=== PATIENT | female | born 1985 | race Caucasian/White ===

== ENCOUNTER 2017-01-10 22:25 | Emergency (ER) | payer SELFPAY ==
[~2017-01-10] VITALS: Ht 172.7 cm; Wt 115.8 kg
[~2017-01-10 22:25] MED LIST: ACET325T11 PO; CHILDREN'S VITAMIN PO; TYLE3 PO
[2017-01-10 22:29] VITALS: BP 202/137; PULSE 93; RESP 18; TEMP 98.2; O2SAT 99
[2017-01-10] MEDS ORDERED: LIDOCAINE 1%/EPINEPHrine 1:100,000 SOLN 20 ML VIAL INFIL ONE (22:45)
[2017-01-10] MEDS ORDERED: BACT800T5 PO (22:52)
[2017-01-10] MEDS ORDERED: IBUP-232 PO (22:52)
--- NOTE | 2017-01-10 22:52 | PD ---
HPI Chief Complaint: Skin Problem Time Seen by Provider: 22:37 Travel History International Travel<30 days: No Contact w/Intl Traveler<30days: No Traveled to known affect area: No History of Present Illness HPI 31-year-old female presents the emergency department with recurrent paronychia to the right distal middle finger. He has been present for approximately one half weeks. Patient states she started treated herself several times without improvement. She denies fever, chills, or other symptoms. It is tender with a pain scale 4/10. He is allergic to iodine but no other allergies. Patient is noted to have hypertension but is scheduled to follow up with her primary care physician this week to address that issue. PFSH Past Medical History Cardiovascular Problems: Yes (HTN) Diminished Hearing: No Hypertension: Yes Tetanus Vaccination: Unknown Influenza Vaccination: No ?: Not : 3 Para: 3 Social History Alcohol Use: No Tobacco Use: Yes (smokes a pack and a half of cigarettes per day) Substance Use: No Allergies-Medications (Allergen,Severity, Reaction): Coded Allergies: Iodine (Verified Allergy, Mild, RASH, 04/14/16) Reported Meds & Prescriptions Reported Meds & Active Scripts Active Ibuprofen 600 Mg Tab 600 Mg PO Q6H PRN Bactrim DS (Sulfamethoxazole-Trimethoprim) 800-160 Mg Tab 1 Tab PO BID Review of Systems Except as stated in HPI: all other systems reviewed are Neg General / Constitutional: No: Fever Eyes: No: Visual changes HENT: No: Headaches Cardiovascular: No: Chest Pain or Discomfort Respiratory: No: Shortness of Breath Gastrointestinal: No: Abdominal Pain Genitourinary: No: Dysuria Musculoskeletal: No: Pain Skin: Positive Lesions, No Rash Neurologic: No: Weakness Psychiatric: No: Depression Endocrine: No: Polydipsia Hematologic/Lymphatic: No: Easy Bruising Physical Exam Narrative GENERAL: Patient appears no distress. SKIN: Warm and dry. Normal color. Normal turgor. Patient has an obvious paronychia on the distal right middle finger along the lateral nail edge. HEAD: Atraumatic. Normocephalic. EYES: Pupils equal and round. No scleral icterus. No injection or drainage. ENT: No nasal bleeding or discharge. Mucous membranes pink and moist. NECK: Trachea midline. No JVD. CARDIOVASCULAR: Regular rate and rhythm. RESPIRATORY: No accessory muscle use. Clear to auscultation. Breath sounds equal bilaterally. GASTROINTESTINAL: Abdomen soft, non-tender, nondistended. Hepatic and splenic margins not palpable. MUSCULOSKELETAL: Extremities without clubbing, cyanosis, or edema. No obvious deformities. NEUROLOGICAL: Awake and alert. No obvious cranial nerve deficits. Motor grossly within normal limits. Five out of 5 muscle strength in the arms and legs. Normal speech. PSYCHIATRIC: Appropriate mood and affect; insight and judgment normal. Data Data Last Documented VS Vital Signs Date Time Temp Pulse Resp B/P Pulse Ox O2 Delivery O2 Flow Rate FiO2 01/10/17 22:29 98.2 93 18 202/137 99 Orders Lidocai-Epi 1%-1:100,000 Inj (Xylocaine- (01/10/17 22:45) MDM Medical Decision Making Medical Screen Exam Complete: Yes Emergency Medical Condition: Yes Differential Diagnosis Cellulitis. Abscess. Paronychia. Narrative Course Patient is medically stable at time of exam. I and D is performed of the paronychia. See procedure note. Dressing is to remain in place for 48 hours. Patient is placed on Bactrim DS 3 times a day 7 days. Patient is to take ibuprofen 600 mg 4 times a day when necessary. Recommend patient follow with her primary care physician as scheduled for her hypertension and follow-up her paronychia. Diagnosis Primary Impression: Paronychia of right middle finger Additional Impression: Hypertension Qualified Code: I10 - Essential hypertension Referrals: [facility] Patient Instructions: General Instructions, Paronychia (ED) Additional Instructions: I and D is performed of the paronychia. Dressing is to remain in place for 48 hours. Patient is placed on Bactrim DS 3 times a day 7 days. Patient is to take ibuprofen 600 mg 4 times a day when necessary. Recommend patient follow with her primary care physician as scheduled for her hypertension and follow-up her paronychia. Med/Other Pt SpecificInfo: Prescription(s) given Scripts Ibuprofen 600 Mg [id number] Mg PO Q6H PRN (Pain/Inflammation) #40 TAB Prov:Genesis Burden MD 01/10/17 Sulfamethoxazole-Trimethoprim (Bactrim DS)800-160 Mg Tab1 Tab PO BID #14 TAB Prov:Genesis Burden MD 01/10/17 Disposition: 01 DISCHARGE HOME Condition: Stable Clarence,Darius F. PA January 10, 2017 22:52
== END 2017-01-10 22:58 | disposition home or self-care (01) ==
LOC: PHEFT 22:25
DX: L03.011 Cellulitis of right finger (principal); I10 Essential (primary) hypertension; F17.210 Nicotine dependence, cigarettes, uncomplicated
CPT/HCPCS: 10061

== ENCOUNTER 2017-02-05 12:24 | Emergency (ER) | payer SELFPAY ==
[~2017-02-05] VITALS: Ht 172.7 cm; Wt 115.0 kg
[~2017-02-05 12:24] MED LIST changes: -ACET325T11 PO; +BACT800T5 PO; -CHILDREN'S VITAMIN PO; +IBUP-232 PO; -TYLE3 PO
[2017-02-05 13:01] VITALS: BP 156/107; PULSE 81; RESP 16; TEMP 99.5; O2SAT 99
[2017-02-05] MEDS ORDERED: DEPO104I SQ (13:15)
[2017-02-05 13:30] LABS: AUTOMATED NEUTROPHIL # 5.2 TH/MM3 (1.8-7.7); BASOPHIL # 0.1 TH/MM3 (0-0.2); BASOPHIL % 0.9 % (0.0-2.0); EOSINOPHIL # 0.1 TH/MM3 (0-0.4); EOSINOPHIL % 0.8 % (0.0-4.0); HEMATOCRIT 39.2 % (35.0-46.0); LYMPH % 14.3 % (9.0-44.0); LYMPHOCYTE # 0.9 TH/MM3 (1.0-4.8); MEAN CELL VOLUME 83.7 FL (80.0-100.0); MEAN CORPUSCULAR HEMOGLOBIN 28.8 PG (27.0-34.0); MEAN CORPUSCULAR HGB CONC 34.5 % (32.0-36.0); MONO % 4.7 % (0.0-8.0); NEUT % 79.3 % (16.0-70.0); PLATELET COUNT 245 TH/MM3 (150-450); RED BLOOD COUNT 4.68 MIL/MM3 (4.00-5.30); RED CELL DISTRIBUTION WIDTH 12.4 % (11.6-17.2); WHITE BLOOD COUNT 6.6 TH/MM3 (4.0-11.0)
[2017-02-05] MEDS ORDERED: PROCHLORPERAZINE INJ 10 MG/2 ML VIAL IV PUSH ONE (13:30)
[2017-02-05] MEDS ORDERED: SODIUM CHLOR 0.9% 1000 ML INJ 1,000 ML IV ONE (13:30)
[2017-02-05] MEDS ORDERED: KETOROLAC TROMETHAMINE 30 MG/ML (IVP) VIAL IV PUSH ONE (13:30)
[2017-02-05] MEDS ORDERED: diphenhydrAMINE HCL 50 MG/ML VIAL IV PUSH ONE (13:30)
[2017-02-05 13:31] LABS: HEMO FLAGS DIFF FINAL
[2017-02-05 13:35] LABS: BLOOD, URINE NEG (NEG); GLUCOSE,URINE NEG (NEG); KETONE, URINE NEG (NEG); NITRITE,URINE NEG (NEG); PH, URINE 6.5 (5.0-8.5)
[2017-02-05 13:40] LABS: CHLORIDE 109 MEQ/L (98-107); POTASSIUM 3.5 MEQ/L (3.5-5.1); SODIUM (NA) 142 MEQ/L (136-145)
[2017-02-05 13:41] LABS: URINE COLOR YELLOW (YELLW/STRAW)
[2017-02-05 13:42] LABS: COMMENT (UR) CULT NOT INDICATED; CULTURE IF INDICATED CULT NOT INDICATED; SQUAMOUS EPITHELIAL CELL URINE 0-5 /hpf (0-5); WBC, URINE 0-2 /hpf (0-5)
[2017-02-05 13:44] LABS: ANION GAP 9 MEQ/L (5-15); BICARBONATE 24.2 MEQ/L (21.0-32.0); BLOOD UREA NITROGEN 7 MG/DL (7-18)
[2017-02-05 13:47] LABS: ALT (GPT) 16 U/L (10-53); AST (GOT) 10 U/L (15-37); GLOMERULAR FILTRATION RATE 78 ML/MIN (>89)
[2017-02-05 13:49] LABS: TOTAL BILIRUBIN ADULT 0.5 MG/DL (0.2-1.0)
[2017-02-05 13:50] LABS: ALKALINE PHOSPHATASE 93 U/L (45-117)
[2017-02-05 14:10] VITALS: BP 154/96; PULSE 84; RESP 16; O2SAT 98
--- NOTE | 2017-02-05 14:19 | RADHPO ---
EXAM DATE/TIME: 02/05/2017 13:52 [place] COMPARISON: No previous studies available for comparison. INDICATIONS : Left flank pain. Low back pain. ORAL CONTRAST: No oral contrast ingested. RADIATION DOSE: 24.25 CTDIvol (mGy) MEDICAL HISTORY : Renal calculi. Hypertension. SURGICAL HISTORY : None. ENCOUNTER: Initial ACUITY: 1 day PAIN SCALE: 7/10 LOCATION: Left flank TECHNIQUE: Volumetric scanning of the abdomen and pelvis was performed. Using automated exposure control and ad justment of the mA and/or kV according to patient size, radiation dose was kept as low as reasonably achievable to obtain optimal diagnostic quality images. FINDINGS: LOWER LUNGS: The visualized lower lungs are clear. LIVER: Homogeneous density without lesion. There is no dilation of the biliary tree. No calcified gallston es. SPLEEN: Normal size without lesion. PANCREAS: Within normal limits. KIDNEYS: Normal in size and shape. There is no mass, stone, or hydronephrosis. ADRENAL GLANDS: Within normal limits. VASCULAR: There is no aortic aneurysm. BOWEL/MESENTERY: The stomach, small bowel, and colon demonstrate no acute abnormality. There is no free intraperitone al air or fluid. ABDOMINAL WALL: There is a tiny umbilical hernia containing only fat. RETROPERITONEUM: There is no lymphadenopathy. BLADDER: No wall thickening or mass. REPRODUCTIVE: There is a 4.8 x 3.5 cm left ovarian cystic lesion. The uterus and right ovary are unremarkable. INGUINAL: There is no lymphadenopathy. Small bilateral inguinal hernias containing only fat are noted. MUSCULOSKELETAL: Within normal limits for patient age. CONCLUSION: 1. No acute obstructive uropathy. 2. 4.8 x 3.5 cm left ovarian cystic lesion. 3. Small bilateral inguinal hernias containing only fat. 4. Tiny umbilical hernia containing only fat. Trey Song MD on February 05, 2017 at 14:14 Board Certified Radiologist. This report was verified electronically.
[2017-02-05 14:38] VITALS: RESP 16
[2017-02-05] MEDS ORDERED: NAPR500T PO (15:35)
--- NOTE | 2017-02-05 15:35 | PD ---
HPI Chief Complaint: Flank/Kidney Pain Time Seen by Provider: 12:54 Travel History International Travel<30 days: No Contact w/Intl Traveler<30days: No Traveled to known affect area: No History of Present Illness HPI Patient is a 31-year-old female comes in complaining of back pain and abdominal pain. She says it started in her left flank, not on both sides as well as her lower abdomen. She says she has had a kidney stone in the past, and it felt this way. She's had some nausea and vomiting. She also complains of a headache , which she says she has had when her blood pressure is gotten too high. She does not take blood pressure medicine, she is only had high blood pressure during her pregnancies. She denies fever, but has had chills. She denies any dysuria. PFSH Past Medical History Cardiovascular Problems: Yes (htn but states takes no meds) Diminished Hearing: No Hypertension: Yes (does not take no meds) Kidney Stones: Yes Tetanus Vaccination: < 5 Years Influenza Vaccination: No ?: Not LMP: no menses on depo control : 3 Para: 3 Past Surgical History Surgical History: No Previous Surgery Social History Alcohol Use: No Tobacco Use: Yes (smokes a pack and a half of cigarettes per day) Substance Use: No Allergies-Medications (Allergen,Severity, Reaction): Coded Allergies: Iodine (Verified Allergy, Mild, RASH, 02/05/17) Reported Meds & Prescriptions Reported Meds & Active Scripts Active Ibuprofen 600 Mg Tab 600 Mg PO Q6H PRN Reported Depo-SubQ Provera Inj (Medroxyprogesterone Inj) Unknown Strength Inj Unknown Dose SQ Q90D Review of Systems Except as stated in HPI: all other systems reviewed are Neg General / Constitutional: Positive: Chills, No: Fever HENT: Positive: Headaches Cardiovascular: No: Chest Pain or Discomfort Respiratory: No: Shortness of Breath Gastrointestinal: Positive: Nausea, Vomiting, Abdominal Pain Genitourinary: Positive: Flank Pain, No: Dysuria Musculoskeletal: No: Myalgias Skin: No Rash, No Change in Pigmentation Neurologic: No: Weakness, Dizziness Physical Exam Narrative GENERAL: Awake and alert, in no acute distress. SKIN: Focused skin assessment warm/dry. HEAD: Atraumatic. Normocephalic. EYES: Pupils equal and round. No scleral icterus. ENT: No nasal bleeding or discharge. Mucous membranes pink and moist. NECK: Trachea midline. No JVD. CARDIOVASCULAR: Regular rate and rhythm. No murmur appreciated. RESPIRATORY: No accessory muscle use. Clear to auscultation. Breath sounds equal bilaterally. GASTROINTESTINAL: Abdomen soft, nondistended. Bilateral CVA tenderness. MUSCULOSKELETAL: No obvious deformities. No clubbing. No cyanosis. No edema. NEUROLOGICAL: Awake and alert. No obvious cranial nerve deficits. Motor grossly within normal limits. Normal speech. PSYCHIATRIC: Appropriate mood and affect; insight and judgment normal. Data Data Last Documented VS Vital Signs Date Time Temp Pulse Resp B/P Pulse Ox O2 Delivery O2 Flow Rate FiO2 02/05/17 14:38 16 02/05/17 14:10 84 154/96 98 Room Air 02/05/17 13:01 99.5 Orders Complete Blood Count With Diff (02/05/17 12:59) Comprehensive Metabolic Panel (02/05/17 12:59) Lipase (02/05/17 12:59) Urinalysis - C+S If Indicated (02/05/17 12:59) Ed Urine Pregnancytest Poc (02/05/17 12:59) Ct Abd/Pel W/O Iv Contrast (02/05/17 ) Iv Access Insert/Monitor (02/05/17 12:59) Prochlorperazine Inj (Compazine Inj) (02/05/17 13:30) Diphenhydramine Inj (Benadryl Inj) (02/05/17 13:30) Sodium Chlor 0.9% 1000 Ml Inj (Ns 1000 M (02/05/17 13:30) Ketorolac Inj (Toradol Inj) (02/05/17 13:30) Electrocardiogram (02/05/17 12:50) Labs Laboratory Tests Test 02/05/17 02/05/17 13:25 13:30 White Blood Count 6.6 TH/MM3 Red Blood Count 4.68 MIL/MM3 Hemoglobin 13.5 GM/DL Hematocrit 39.2 % Mean Corpuscular Volume 83.7 FL Mean Corpuscular Hemoglobin 28.8 PG Mean Corpuscular Hemoglobin 34.5 % Concent Red Cell Distribution Width 12.4 % Platelet Count 245 TH/MM3 Mean Platelet Volume 8.0 FL Neutrophils (%) (Auto) 79.3 % Lymphocytes (%) (Auto) 14.3 % Monocytes (%) (Auto) 4.7 % Eosinophils (%) (Auto) 0.8 % Basophils (%) (Auto) 0.9 % Neutrophils # (Auto) 5.2 TH/MM3 Lymphocytes # (Auto) 0.9 TH/MM3 Monocytes # (Auto) 0.3 TH/MM3 Eosinophils # (Auto) 0.1 TH/MM3 Basophils # (Auto) 0.1 TH/MM3 CBC Comment DIFF FINAL Differential Comment Sodium Level 142 MEQ/L Potassium Level 3.5 MEQ/L Chloride Level 109 MEQ/L Carbon Dioxide Level 24.2 MEQ/L Anion Gap 9 MEQ/L Blood Urea Nitrogen 7 MG/DL Creatinine 0.84 MG/DL Estimat Glomerular Filtration 78 ML/MIN Rate Random Glucose 85 MG/DL Calcium Level 8.9 MG/DL Total Bilirubin 0.5 MG/DL Aspartate Amino Transf 10 U/L (AST/SGOT) Alanine Aminotransferase 16 U/L (ALT/SGPT) Alkaline Phosphatase 93 U/L Total Protein 7.3 GM/DL Albumin 4.0 GM/DL Lipase 105 U/L Urine Color YELLOW Urine Turbidity CLEAR Urine pH 6.5 Urine Specific [place] 1.022 Urine Protein NEG mg/dL Urine Glucose (UA) NEG mg/dL Urine Ketones NEG mg/dL Urine Occult Blood NEG Urine Nitrite NEG Urine Bilirubin NEG Urine Leukocyte Esterase NEG Urine WBC 0-2 /hpf Urine Squamous Epithelial 0-5 /hpf Cells Microscopic Urinalysis Comment CULT NOT INDICATED MDM Medical Decision Making Medical Screen Exam Complete: Yes Emergency Medical Condition: Yes Medical Record Reviewed: Yes Differential Diagnosis Renal stone versus UTI versus pyelonephritis Narrative Course Patient is a 31-year-old female comes in complaining of bilateral back pain as well as lower abdominal pain. Exam shows bilateral CVA tenderness. IV established, labs sent. Labs show no acute abnormalities. Urinalysis is negative for any acute findings. CT abdomen and pelvis performed shows a ovarian cyst. Patient given IV fluids, Compazine, Benadryl, Toradol. She reports feeling better. She was informed of the results of her ovarian cyst. She is advised follow-up with gynecology for an ultrasound. Advised to take naproxen or ibuprofen as needed for pain. Advised to return to the ED as needed for any worsening symptoms. Last 24 hours Impressions Abdomen/Pelvis CT 02/05/17 0000 Signed Impressions: Service Date/Time: January 13:52 - CONCLUSION: 1. No acute obstructive uropathy. 2. 4.8 x 3.5 cm left ovarian cystic lesion. 3. Small bilateral inguinal hernias containing only fat. 4. Tiny umbilical hernia containing only fat. Trey Song MD Diagnosis Primary Impression: Ovarian cyst Patient Instructions: General Instructions, Ovarian Cyst (ED) Additional Instructions: Follow-up with gynecology. Take ibuprofen or naproxen as needed for pain. Drink plenty of fluids. Return to the emergency department as needed for any worsening symptoms. Scripts Naproxen 500 Mg [id number] Mg PO BID #14 TAB Ref 0 Prov:Cornelia Wild MD 02/05/17 Disposition: 01 DISCHARGE HOME Condition: Stable Cornelia Wild MD Feb 05, 2017 15:35
[2017-02-05 16:12] VITALS: BP 148/90
--- NOTE | 2017-02-06 22:53 | EKG ---
Date Performed: 02/05/2017 Time Performed: 12:50:41 PTAGE: 31 years EKG: Sinus rhythm NONSPECIFIC ST & T-WAVE ABNORMALITY BORDERLINE ECG INTERPRETATION BASED ON A DEFAULT AGE OF 38 YEARS NO PREVIOUS TRACING DOCTOR: Jarrett Marie Interpretating Date/Time 02/06/2017 22:52:19
== END 2017-02-05 16:15 | disposition home or self-care (01) ==
LOC: PHED 12:24
DX: N83.202 Unspecified ovarian cyst, left side (principal); K40.20 Bilateral inguinal hernia, without obstruction or gangrene, not specified as recurrent; I10 Essential (primary) hypertension; F17.210 Nicotine dependence, cigarettes, uncomplicated
CPT/HCPCS: 74176; 80053; 81001; 83690; 84703; 85025; 93005; 96361; 96374; 96375; 99285; J0780; J1200; J1885; J7030